=== PATIENT | female | born 1975 | race Caucasian/White ===

== ENCOUNTER 2016-07-28 07:50 | Emergency (ER) | payer BC ==
[~2016-07-28] VITALS: Ht 162.6 cm; Wt 79.2 kg
[2016-07-28 08:47] VITALS: BP 127/86
== END 2016-07-28 08:52 | disposition home or self-care (01) ==
LOC: EDUNIT# 07:50 → ED 07:52
DX: R21 Rash and other nonspecific skin eruption (principal)
CPT/HCPCS: 99282; 99283

== ENCOUNTER 2016-09-07 20:00 | Emergency (ER) | payer BC ==
[~2016-09-07] VITALS: Ht 162.6 cm; Wt 83.2 kg
[2016-09-07] MEDS ORDERED: methylPREDNISolone 125 MG (Solu-MEDROL) VIAL IM ONE (20:25)
[2016-09-07] MEDS ORDERED: BENZONATATE 100 MG (TESSALON) CAPSULE PO ONE (20:25)
[2016-09-07] MEDS ORDERED: KETOROLAC 60 MG/2 ML (TORADOL) VIAL IM ONE (20:25)
[2016-09-07] MEDS ORDERED: ALBUTEROL/IPRATROPIUM 3MG-0.5MG/3ML (DUONEB) NEB VIAL INH ONE (20:25)
[2016-09-07] MEDS ORDERED: ONDANSETRON 4 MG (ZOFRAN) ORAL DISSOLVE TAB PO ONE (20:25)
[2016-09-07 21:03] LABS: INFLUENZA VIRUS TYPE A ANTIBOD Negative (NEGATIVE); INFLUENZA VIRUS TYPE B ANTIBOD Negative (NEGATIVE)
[2016-09-07] MEDS ORDERED: ED- TRAMADOL 50 MG (ULTRAM) 6 TABLETS/BTL PO ONE (21:20)
[2016-09-07] MEDS ORDERED: ED- ALBUTEROL HFA (VENTOLIN HFA) 8 GM INHALER IH ONE (21:20)
[2016-09-07] MEDS ORDERED: ED- BENZONATATE 100MG (TESSALON) 6 CAPSULES/BTL PO ONE (21:20)
[2016-09-07] MEDS ORDERED: AZITHROMYCIN 250 MG TAB (ZITHROMAX) PO ONE (21:20)
[2016-09-07 21:43] VITALS: BP 105/70
== END 2016-09-07 21:45 | disposition home or self-care (01) ==
LOC: ED 20:03
DX: J45.901 Unspecified asthma with (acute) exacerbation (principal)
CPT/HCPCS: 87502; 94640; 96372; 99282; J1885; J2930; 99283